=== PATIENT | male | born 1960 | race Caucasian/White ===

== ENCOUNTER 2020-03-02 19:32 | Emergency (ER) | payer BC, OTHER ==
--- NOTE | 2020-03-02 19:33 | ERPHSYRPT ---
- History of Present Illness Time Seen by Provider: 03/02/20 19:33 Source: patient Exam Limitations: no limitations Physician History: This is a 59-year-old white male who has no known medical diagnoses and is not taking any medications and presents with a syncopal episode that was witnessed at a restaurant. Patient was eating with his when he had a syncopal epis ode. A flight nurse was near the patient. The patient had dropped his head onto the table and was pale and diaphoretic. He was placed on the ground in a supine position and then his symptoms resolved. Patient states that he has been under a lot of stress lately having lost his job and is semiretired. This all occurred this week. Patient did drink a couple beers earlier today. He denies illicit drug use. Patient denies any symptoms of flu, he denies chest pain, he denies shortness of breath. He has had no nausea vomiting or diarrhea. He has no back pain he has no abdominal pain. This is never happened to him before. Patient refused emergency services transport and came in on his own with his . In the emergency department he has no complaints whatsoever. Patient woke up today and has been feeling fine all day. He did state that for the last couple of days he has not slept well. Timing/Duration: today Activities at Onset: other (Eating dinner) Severity of Pain-Max: none Severity of Pain-Current: none Nitro Today/Relief: no nitro taken today Aspirin Treatment Today: no aspirin today Associated Symptoms: syncope, No nausea, No vomiting, No abdominal pain, No shortness of breath, No diaphoresis, No chest pain, No fever, No headaches, No weakness Prior Chest Pain/Cardiac Workup: no prior chest pain, no prior cardiac workup Allergies/Adverse Reactions: No Known Drug Allergies Allergy (Verified 03/02/20 19:53) Home Medications: No Reportable Medications [No Reported Medications] 03/02/20 [History] Hx Tetanus, Diphtheria Vaccination/Date Given: No Hx Influenza Vaccination/Date Given: No (Decline) Hx Pneumococcal Vaccination/Date Given: No (Decline) Travel Risk - International Travel Have you traveled outside of the country in past 3 weeks: No - Coronavirus Screening Are you exhibiting any of the following symptoms?: No Close contact with a COVID-19 positive Pt in past 14-21 Days: No - Review of Systems Constitutional: No Symptoms Eyes: No Symptoms Ears, Nose, & Throat: No Symptoms Respiratory: No Symptoms Cardiac: Syncope Abdominal/Gastrointestinal: No Symptoms Genitourinary Symptoms: No Symptoms Musculoskeletal: No Symptoms Skin: No Symptoms Neurological: No Symptoms Psychological: No Symptoms Endocrine: No Symptoms Hematologic/Lymphatic: No Symptoms Immunological/Allergic: No Symptoms All Other Systems: Reviewed and Negative - Past Medical History Pertinent Past Medical History: Yes Neurological History: No Pertinent History ENT History: No Pertinent History Cardiac History: No Pertinent History Respiratory History: No Pertinent History Endocrine Medical History: No Pertinent History Musculoskeletal History: Other GI Medical History: No Pertinent History History: No Pertinent History Psycho-Social History: No Pertinent History Male Reproductive Disorders: No Pertinent History Other Medical History: Intermittent back pain - Past Surgical History Past Surgical History: No Neuro Surgical History: No Pertinent History Cardiac: No Pertinent History Respiratory: No Pertinent History Gastrointestinal: No Pertinent History Genitourinary: No Pertinent History Musculoskeletal: No Pertinent History Male Surgical History: No Pertinent History Other Surgical History: Boil lanced buttocks 2010 - Social History Smoking Status: Never smoker Exposure to second hand smoke: Yes Drug Use: none Patient Lives Alone: No - Nursing Vital Signs Nursing Vital Signs: Initial Vital Signs Temperature 98.1 F 03/02/20 19:37 Pulse Rate 77 03/02/20 19:37 Respiratory Rate 18 03/02/20 19:37 Blood Pressure 110/71 03/02/20 19:37 O2 Sat by Pulse Oximetry 97 03/02/20 19:37 Pain Scale Pain Intensity 0 - Physical Exam General Appearance: no apparent distress, alert Eye Exam: PERRL/EOMI, eyes nml inspection Ears, Nose, Throat Exam: normal ENT inspection, moist mucous membranes Neck Exam: normal inspection, non-tender, supple, full range of motion Respiratory Exam: normal breath sounds, lungs clear, airway intact, No chest tenderness, No respiratory distress Cardiovascular Exam: regular rate/rhythm, normal heart sounds, normal peripheral pulses Gastrointestinal/Abdomen Exam: soft, normal bowel sounds, No tenderness Rectal Exam: not done Back Exam: normal inspection, normal range of motion, No CVA tenderness Extremity Exam: normal inspection, normal range of motion, pelvis stable Neurologic Exam: alert, oriented x 3, cooperative, computational scientist II-XII nml as tested, normal mood/affect, nml cerebellar function, nml station & gait, sensation nml Skin Exam: normal color, warm, dry Lymphatic Exam: No adenopathy SpO2 Interpretation: normal O2 Delivery: Room Air - Course Nursing assessment & vital signs reviewed: Yes EKG Interpreted by Me: RATE (77), Sinus Rhythm, NORMAL AXIS, NORMAL INTERVALS, NORMAL QRS, NORMAL ST-T, Other (No acute ischemic changes. No comparison EKGs available.) Ordered Tests: Active Orders 24 hr Category Date Time Status Senior Java Web Developer STAT Care 03/02/20 19:56 Active Clean Catch Urine Specimen STAT Care 03/02/20 19:55 Active EKG-ER Only STAT Care 03/02/20 19:55 Active IV Insertion STAT Care 03/02/20 19:55 Active Pulse Oximetry (ED) STAT Care 03/02/20 19:55 Active HEAD WITHOUT CONTRAST [CT] Stat Exams 03/02/20 19:56 Taken CBC W DIFF Stat Lab 03/02/20 20:10 Completed CMP Stat Lab 03/02/20 20:10 Completed ETHYL ALCOHOL Stat Lab 03/02/20 20:10 Completed PROTIME WITH INR Stat Lab 03/02/20 20:10 Completed TROPONIN Q3H Lab 03/02/20 20:10 Completed TROPONIN Q3H Lab 03/02/20 23:00 Ordered TROPONIN Q3H Lab 03/03/20 02:00 Ordered TROPONIN Q3H Lab 03/03/20 05:00 Ordered TROPONIN Q3H Lab 03/03/20 08:00 Ordered UA W/RFX UR CULTURE Stat Lab 03/02/20 20:50 Ordered Urine Triage Profile Stat Lab 03/02/20 20:50 Ordered Medication Summary Generic Name Dose Route Start Last Admin Trade Name Freq PRN Reason Stop Dose Admin Sodium Chloride 1,000 mls @ 999 mls/hr 03/02/20 19:55 03/02/20 20:02 Sodium Chloride 0.9% 1000 Ml IV 03/02/20 20:55 999 mls/hr .Q1H1M STA Administration Discontinued Medications Generic Name Dose Route Start Last Admin Trade Name Freq PRN Reason Stop Dose Admin Sodium Chloride Confirm 03/02/20 20:00 Sodium Chloride 0.9% 1000 Ml Administered 03/02/20 20:01 Dose 1,000 mls @ ud .ROUTE .STK-MED ONE Lab/Rad Data: Laboratory Result Diagrams 03/02/20 20:10 03/02/20 20:10 Laboratory Results 03/02/20 03/02/20 03/02/20 Range/Units 20:10 20:10 20:10 WBC (4.0-10.5) K/mm3 RBC (4.1-5.6) M/mm3 Hgb (12.5-18.0) gm/dl Hct (42-50) % MCV (78-100) fl MCH (26-32) pg MCHC (32-36) g/dl RDW (11.5-14.0) % Plt Count (150-450) K/mm3 MPV (7.5-11.0) fl Gran % (36.0-66.0) % Eos # (Auto) (0-0.5) Absolute Lymphs (auto) (1.0-4.6) Absolute Monos (auto) (0.0-1.3) Lymphocytes % (24.0-44.0) % Monocytes % (0.0-12.0) % Eosinophils % (0.00-5.0) % Basophils % (0.0-0.4) % Absolute Granulocytes (1.4-6.9) Basophils # (0-0.4) PT 12.7 (8.83-12.87) SECONDS INR 1.12 (0.8-3.0) Sodium 137 (137-145) mmol/L Potassium 3.7 (3.5-5.1) mmol/L Chloride 102 (98-107) mmol/L Carbon Dioxide 24 (22-30) mmol/L Anion Gap 14.7 (5-15) MEQ/L BUN 17 (9-20) mg/dL Creatinine 1.08 (0.66-1.25) mg/dL Estimated GFR > 60.0 ML/MIN Glucose 118 H (74-106) mg/dL Calcium 9.8 (8.4-10.2) mg/dL Total Bilirubin 0.70 (0.2-1.3) mg/dL AST 38 (17-59) U/L ALT 69 H (0-50) U/L Alkaline Phosphatase 70 (38-126) U/L Troponin I < 0.012 (0.000-0.034) ng/mL Serum Total Protein 7.5 (6.3-8.2) g/dL Albumin 4.6 (3.5-5.0) g/dL Ethyl Alcohol 16 H (0-10) mg/dL 03/02/20 Range/Units 20:10 WBC 7.9 (4.0-10.5) K/mm3 RBC 5.02 (4.1-5.6) M/mm3 Hgb 16.0 (12.5-18.0) gm/dl Hct 47.8 (42-50) % MCV 95.2 (78-100) fl MCH 31.9 (26-32) pg MCHC 33.5 (32-36) g/dl RDW 13.2 (11.5-14.0) % Plt Count 300 (150-450) K/mm3 MPV 9.6 (7.5-11.0) fl Gran % 61.8 (36.0-66.0) % Eos # (Auto) 0.10 (0-0.5) Absolute Lymphs (auto) 2.19 (1.0-4.6) Absolute Monos (auto) 0.70 (0.0-1.3) Lymphocytes % 27.7 (24.0-44.0) % Monocytes % 8.9 (0.0-12.0) % Eosinophils % 1.3 (0.00-5.0) % Basophils % 0.3 (0.0-0.4) % Absolute Granulocytes 4.89 (1.4-6.9) Basophils # 0.02 (0-0.4) PT (8.83-12.87) SECONDS INR (0.8-3.0) Sodium (137-145) mmol/L Potassium (3.5-5.1) mmol/L Chloride (98-107) mmol/L Carbon Dioxide (22-30) mmol/L Anion Gap (5-15) MEQ/L BUN (9-20) mg/dL Creatinine (0.66-1.25) mg/dL Estimated GFR ML/MIN Glucose (74-106) mg/dL Calcium (8.4-10.2) mg/dL Total Bilirubin (0.2-1.3) mg/dL AST (17-59) U/L ALT (0-50) U/L Alkaline Phosphatase (38-126) U/L Troponin I (0.000-0.034) ng/mL Serum Total Protein (6.3-8.2) g/dL Albumin (3.5-5.0) g/dL Ethyl Alcohol (0-10) mg/dL - Progress Progress: improved Air Movement: good Progress Note: 03/02/20 20:51 CAT scan of the head without contrast shows a few tiny cavernous sinus air bubbles without fracture. Rule out posttraumatic versus infectious versus iatrogenic. If none of the above, air bubbles are typically of no clinical significance. Remaining CT head negative. Medical decision making: This patient denies head injury. He had a syncopal episode at a restaurant. Patient symptoms have completely resolved prior to arrival here. The patient's spouse made him come to the emergency department. Patient denies any kind of symptoms. Patient is feeling well. His lab work is of no clinical significance. Patient will be discharged to home with instruction to follow-up with his primary care physician for further management. Blood Culture(s) Obtained: No Antibiotics given: No Counseled pt/family regarding: lab results, diagnosis, need for follow-up, rad results - Departure Departure Disposition: Home Clinical Impression: Syncopal episodes Condition: Stable Critical Care Time: No Referrals: HAZEL JUELS [ACTIVE STAFF] - Additional Instructions: Drink plenty of fluids. Call your primary care doctor today to make arrangements for follow-up appointment.
[2020-03-02] MEDS ORDERED: Sodium Chloride 0.9% 1000 ML 1,000 ML IV STA (19:55)
[2020-03-02] MEDS ORDERED: Sodium Chloride 0.9% 1000 ML 1,000 ML ONE (20:00)
[2020-03-02 20:21] LABS: Absolute Neutrophil Ct (ANC) 4.89 (1.4-6.9); BASOPHIL % 0.3 % (0.0-0.4); Basophil (Absolute #) 0.02 (0-0.4); Eosinophil % 1.3 % (0.00-5.0); Hematocrit 47.8 % (42-50); Lymphocyte (Absolute #) 2.19 (1.0-4.6); Lymphocytes % 27.7 % (24.0-44.0); Mean Cell Volume 95.2 fl (78-100); Mean Corpuscular Hemoglobin 31.9 pg (26-32); Mean Corpuscular Hgb Concent. 33.5 g/dl (32-36); Mean Platelet Volume 9.6 fl (7.5-11.0); Monocytes % 8.9 % (0.0-12.0); Neutrophil % 61.8 % (36.0-66.0); Platelet Count 300 K/mm3 (150-450); Red Blood Count 5.02 M/mm3 (4.1-5.6); Red Cell Distribution Width 13.2 % (11.5-14.0); White Blood Count 7.9 K/mm3 (4.0-10.5)
[2020-03-02 20:27] LABS: INR 1.12 (0.8-3.0); PROTIME 12.7 SECONDS (8.83-12.87)
[2020-03-02 20:33] LABS: ALBUMIN 4.6 g/dL (3.5-5.0); ALKALINE PHOSPHATASE 70 U/L (38-126); ANION GAP 14.7 MEQ/L (5-15); BLOOD UREA NITROGEN 17 mg/dL (9-20); CHLORIDE 102 mmol/L (98-107); Calcium 9.8 mg/dL (8.4-10.2); Carbon Dioxide 24 mmol/L (22-30); Creatinine 1 1.08 mg/dL (0.66-1.25); EST GLOMERULAR FILTRATION RATE > 60.0 ML/MIN; ETHYL ALCOHOL 16 mg/dL (0-10); Glucose 118 mg/dL (74-106); Potassium 3.7 mmol/L (3.5-5.1); SGOT/AST 38 U/L (17-59); SGPT/ALT 69 U/L (0-50); SODIUM 137 mmol/L (137-145); Total Protein 7.5 g/dL (6.3-8.2)
[2020-03-02 21:06] LABS: Appearance SLIGHTLY CLOUDY (CLEAR); Bilirubin NEGATIVE (NEGATIVE); Blood NEGATIVE Ery/ul (0-5); Glucose NEGATIVE (NEGATIVE); Ketones TRACE (NEGATIVE); Leukocyte Esterase NEGATIVE (NEGATIVE); Mucus MANY /HPF (NEGATIVE); Nitrite NEGATIVE (NEGATIVE); Protein,Urine Dip 30 (Negative); Specific Gravity 1.029 (1.005-1.025); Urobilinogen 2 mg/dL (0-1)
[2020-03-02 21:14] LABS: Amphetamine,Urine NEGATIVE (NEGATIVE); Barbiturate,Urine NEGATIVE (NEGATIVE); Benzodiazepine,Urine NEGATIVE (NEGATIVE); Cocaine,Urine NEGATIVE (NEGATIVE); Methadone,Urine NEGATIVE (NEGATIVE); Opiate,Urine POSITIVE (NEGATIVE); PCP,Urine NEGATIVE (NEGATIVE); THC,Urine POSITIVE (NEGATIVE)
[2020-03-02 21:22] VITALS: BP 111/76; PULSE 77; O2SAT 97
--- NOTE | 2020-03-03 08:56 | XRAY ---
Indication: Syncopal episode. No known injury. Multiple contiguous axial images obtained through the head without contrast. Comparison: None Ventriculosulcal pattern appears symmetric. No acute intracranial hemorrhage, abnormal extra-axial fluid collection, or mass effect. Fourth ventricle is midline without hydrocephalus. Toscano-white matter differentiation preserved. A few tiny air bubbles in the cavernous sinus. Bony calvarium intact. Visualized paranasal sinuses and mastoid air cells are clear. Impression: Cavernous sinus air bubbles. Rule out posttraumatic, infection, or iatrogenic etiologies. Remaining CT head without contrast exam is negative.
== END 2020-03-02 21:38 | disposition home or self-care (01) ==
LOC: ED 19:32
DX: R55 Syncope and collapse (principal)
CPT/HCPCS: 36000; 36415; 70450; 80053; 80307; 81001; 84484; 85025; 85610; 93005; 93041; 94760; 96360; 99284; G0480

== ENCOUNTER 2025-01-19 19:23 | Emergency (ER) | payer OTHER ==
[2025-01-19 19:35] VITALS: RESP 22; TEMP 96.5
[2025-01-19] MEDS ORDERED: TORAdol 30 mg Injection ONE (19:38)
[2025-01-19] MEDS ORDERED: Zofran 4 MG/2 ML VIAL ONE (19:38)
--- NOTE | 2025-01-19 19:38 | ERPHSYRPT ---
- History of Present Illness Time Seen by Provider: 01/19/25 19:30 Source: patient Patient Subjective Stated Complaint: pt states that he thinks he is passing a kidney stone Triage Nursing Assessment: pt ambulated into the er; pt is axo x4; c/o abd pain; pt states 10/10 pain to lower rt abd; abd round, soft, tender; active bowel sounds in all quads; c/o N/V, denies diarrhea; skin PDW; no respiratory distress present; hypertensive Physician History: 4-year-old male reports history of prior kidney stones to the ED with a similar pain starting in the right side of his abdomen with sharp severe pain and nausea vomiting. No flank pain. No urinary symptoms. Reports several episodes of vomiting tonight. No fever or chills. Denies any abdominal tenderness. Allergies/Adverse Reactions: No Known Drug Allergies Allergy (Verified 01/19/25 19:29) Hx Tetanus, Diphtheria Vaccination/Date Given: Yes Hx Influenza Vaccination/Date Given: No (Decline) Hx Pneumococcal Vaccination/Date Given: No (Decline) Travel Risk - International Travel Have you traveled outside of the country in past 3 weeks: No - Emerging Infectious Disease Are you exhibiting symptoms associated with any current EIDs: Yes Symptoms: Abdominal Pain - Review of Systems Constitutional: No Fever, No Chills Eyes: No Symptoms Ears, Nose, & Throat: No Symptoms Respiratory: No Cough, No Dyspnea Cardiac: No Chest Pain, No Edema, No Syncope Abdominal/Gastrointestinal: Abdominal Pain, Nausea, Vomiting, No Diarrhea Genitourinary Symptoms: No Dysuria Musculoskeletal: No Back Pain, No Neck Pain Skin: No Rash Neurological: No Dizziness, No Focal Weakness, No Sensory Changes Psychological: No Symptoms Endocrine: No Symptoms All Other Systems: Reviewed and Negative - Past Medical History Pertinent Past Medical History: Yes Neurological History: No Pertinent History ENT History: No Pertinent History Cardiac History: No Pertinent History Respiratory History: No Pertinent History Endocrine Medical History: No Pertinent History Musculoskeletal History: Other GI Medical History: No Pertinent History History: No Pertinent History Psycho-Social History: No Pertinent History Male Reproductive Disorders: No Pertinent History Other Medical History: Intermittent back pain - Past Surgical History Past Surgical History: No Neuro Surgical History: No Pertinent History Cardiac: No Pertinent History Respiratory: No Pertinent History Gastrointestinal: No Pertinent History Genitourinary: No Pertinent History Musculoskeletal: No Pertinent History Male Surgical History: No Pertinent History Other Surgical History: Boil lanced buttocks 2010 - Social History Smoking Status: Never smoker Exposure to second hand smoke: Yes Drug Use: none - Social Determinants of Health Will the patient participate in the screening: Declined to provide - Nursing Vital Signs Nursing Vital Signs: Initial Vital Signs Temperature 96.5 F 01/19/25 19:29 Pulse Rate 61 01/19/25 19:29 Respiratory Rate 22 01/19/25 19:29 Blood Pressure 169/103 01/19/25 19:29 O2 Sat by Pulse Oximetry 100 01/19/25 19:29 Pain Scale Pain Intensity 2 - Physical Exam General Appearance: no apparent distress, alert Eye Exam: PERRL/EOMI, eyes nml inspection Ears, Nose, Throat Exam: normal ENT inspection, TMs normal, pharynx normal, moist mucous membranes Neck Exam: normal inspection, non-tender, supple, full range of motion Respiratory Exam: normal breath sounds, lungs clear, No respiratory distress Cardiovascular Exam: regular rate/rhythm, normal heart sounds, normal peripheral pulses Gastrointestinal/Abdomen Exam: soft, normal bowel sounds, No tenderness, No distention, No mass Back Exam: normal inspection, normal range of motion, No CVA tenderness, No vertebral tenderness Extremity Exam: normal inspection, normal range of motion, pelvis stable Neurologic Exam: alert, oriented x 3, cooperative, normal mood/affect, nml cerebellar function, nml station & gait, sensation nml, No motor deficits Skin Exam: normal color, warm, dry, No rash Lymphatic Exam: No adenopathy SpO2: 100 Ordered Tests: Active Orders 24 hr Category Date Time Status ABDOMEN AND PELVIS W/0 CONTRAS [CT] Stat Exams 01/19/25 19:35 Taken BMP Stat Lab 01/19/25 19:35 Completed CBC W DIFF Stat Lab 01/19/25 19:35 Completed CULTURE,URINE Stat Lab 01/19/25 21:13 Received UA W/RFX UR CULTURE Stat Lab 01/19/25 21:13 Completed Medication Summary Discontinued Medications Generic Name Dose Route Start Last Admin Trade Name Freq PRN Reason Stop Dose Admin Ketorolac Tromethamine 15 mg 01/19/25 19:34 01/19/25 19:41 Ketorolac Tromethamine 30 Mg/Ml Inj IV 01/19/25 19:35 15 mg STAT ONE Administration Ketorolac Tromethamine Confirm 01/19/25 19:38 Ketorolac Tromethamine 30 Mg/Ml Inj Administered 01/19/25 19:39 Dose 30 mg .ROUTE .STK-MED ONE Ondansetron HCl 4 mg 01/19/25 19:34 01/19/25 19:39 Ondansetron Hcl 4 Mg/2 Ml Vial IV 01/19/25 19:35 4 mg STAT ONE Administration Ondansetron HCl Confirm 01/19/25 19:38 Ondansetron Hcl 4 Mg/2 Ml Vial Administered 01/19/25 19:39 Dose 4 mg .ROUTE .STK-MED ONE Lab/Rad Data: Laboratory Result Diagrams 01/19/25 19:35 01/19/25 19:35 Laboratory Results 01/19/25 01/19/25 01/19/25 Range/Units 21:13 19:35 19:35 WBC 13.9 H (4.23-9.07) x10^3/uL RBC 4.75 (4.63-6.08) x10^6/uL Hgb 15.5 (13.7-17.5) g/dL Hct 46.0 (40.1-51.0) % MCV 96.8 H (79.0-92.2) fL MCH 32.6 H (25.7-32.2) pg MCHC 33.7 (32.3-36.5) g/dL RDW 12.5 (11.6-14.4) % Plt Count 272 (163-337) x10^3/uL MPV 8.9 L (9.4-12.4) fL Gran % 85.2 H (34.0-67.9) % Immature Gran % (Auto) 0.5 H (0.001-0.429) % Nucleat RBC Rel Count 0.0 (0.00-0.2) % Eos # (Auto) 0.11 (0.04-0.54) x10^3/uL Immature Gran # (Auto) 0.07 H (0.001-0.031) x10^3u/L Absolute Lymphs (auto) 1.21 L (1.32-3.57) x10^3/uL Absolute Monos (auto) 0.62 (0.30-0.82) x10^3/uL Absolute Nucleated RBC 0.00 (0.00-0.012) x10^3u/L Lymphocytes % 8.7 L (21.8-53.1) % Monocytes % 4.5 L (5.3-12.2) % Eosinophils % 0.8 (0.8-7.0) % Basophils % 0.3 (0.2-1.2) % Absolute Granulocytes 11.81 H (1.78-5.38) x10^3/uL Basophils # 0.04 (0.01-0.08) x10^3/uL Sodium 137 (135-145) mmol/L Potassium 4.0 (3.5-5.1) mmol/L Chloride 102 (98-107) mmol/L Carbon Dioxide 25 (22-30) mmol/L Anion Gap 13.8 (5-15) MEQ/L BUN 16 (9-20) mg/dL Creatinine 1.07 (0.66-1.25) mg/dL Estimated GFR 77.5 ML/MIN Glucose 132 H (74-106) mg/dL Calcium 10.0 (8.4-10.2) mg/dL Urine Color Dark Yellow (Yellow) Urine Appearance Cloudy A (Clear) Urine pH 5.0 (4.6-8.0) Ur Specific Aneta >=1.030 A (1.005-1.030) Urine Protein 30 (Negative) Urine Glucose (UA) Negative (Negative) mg/dL Urine Ketones 15 A (Negative) Urine Blood Large A (Negative) Urine Nitrite Negative (Negative) Urine Bilirubin Negative (Negative) Urine Urobilinogen 1.0 A (0.2) mg/dL Ur Leukocyte Esterase Trace A (Negative) U Hyaline Cast (Auto) NONE SEEN (0-2) /LPF Urine Microscopic RBC 51-100 A (0-5) /HPF Urine Microscopic WBC 0-2 (0-5) /HPF Ur Epithelial Cells None Seen (None Seen) /HPF Urine Bacteria None Seen (None Seen) /HPF Urine Culture Reflexed YES (NO) - Progress Progress: improved Progress Note: 01/19/25 19:37 64-year-old male with history of kidney stones presents with 24 hours of sharp constant pain in the right groin and associated nausea and vomiting. No flank pain. No abdominal tenderness. Lab workup CBC chemistries urinalysis CT abdomen with 15 mg IV toradol and 4 mg IV Zofran ordered. 01/19/25 21:20 Exam pain is resolved. Mild white count. CT scan read as 5 to 6 mm millimeter right UVJ stone with mild hydronephrosis hydroureter grossly stable liver hemangioma moderate size hiatal hernia findings cussed with patient - Departure Clinical Impression: Ureteral stone with hydronephrosis, Hiatal hernia Condition: Good Critical Care Time: No Referrals: SAM WOODARD MD [Primary Care Provider, [facility]] - Follow up/PCP as directed Instructions: Kidney stones in adults Additional Instructions: You have a right-sided kidney stone that needs follow-up with urology if your symptoms do not resolve. To be placed on medication to pass the stone. Take ibuprofen for discomfort and take the pain pills as needed. Turn for fever or worsening pain vomiting or concerns Prescriptions: Ondansetron ODT 4 MG [Zofran Odt 4 mg] 4 mg PO Q6H PRN PRN #10 tablet PRN Reason: Nausea Tamsulosin HCl [Flomax] 0.4 mg PO DAILY #14 cap Hydrocodone/Acetaminophen [Hydrocodon-Acetaminophen 5-325] 1 each PO Q6H PRN 3 Days #12 tablet MDD 4 tablets PRN Reason: Pain
[2025-01-19] MEDS: Zofran 4 MG/2 ML VIAL IV ONE (19:39)
[2025-01-19] MEDS: TORAdol 30 mg Injection IV ONE (19:41)
[2025-01-19 19:43] LABS: BASOPHIL % 0.3 % (0.2-1.2); Basophil (Absolute #) 0.04 x10^3/uL (0.01-0.08); Eosinophil (Absolute #) 0.11 x10^3/uL (0.04-0.54); Hematocrit 46.0 % (40.1-51.0); Hemoglobin 15.5 g/dL (13.7-17.5); IMMATURE GRAN # 0.07 x10^3u/L (0.001-0.031); IMMATURE GRAN % 0.5 % (0.001-0.429); Lymphocyte (Absolute #) 1.21 x10^3/uL (1.32-3.57); Mean Corpuscular Hemoglobin 32.6 pg (25.7-32.2); Mean Corpuscular Hgb Concent. 33.7 g/dL (32.3-36.5); Monocyte (Absolute #) 0.62 x10^3/uL (0.30-0.82); NUCLEATED RBC # 0.00 x10^3u/L (0.00-0.012); NUCLEATED RBC % 0.0 % (0.00-0.2); Platelet Count 272 x10^3/uL (163-337); Red Blood Count 4.75 x10^6/uL (4.63-6.08); White Blood Count 13.9 x10^3/uL (4.23-9.07)
[2025-01-19 19:57] LABS: Calcium 10.0 mg/dL (8.4-10.2); Carbon Dioxide 25.0 mmol/L (22-30); Creatinine 1 1.07 mg/dL (0.66-1.25); EST GLOMERULAR FILTRATION RATE 77.5 ML/MIN; Glucose 132.0 mg/dL (74-106); Potassium 4.0 mmol/L (3.5-5.1)
[2025-01-19 21:21] LABS: Glucose, Urine Negative (Negative); Protein,Urine Dip 30 (Negative); RBC 51-100 /HPF (0-5); WBC 0-2 /HPF (0-5)
[2025-01-19 21:27] VITALS: O2SAT 100
[2025-01-19 21:35] VITALS: BP 119/86; PULSE 68
[2025-01-19] MEDS ORDERED: NORCO 5/325 MG ONE (21:36)
[2025-01-19] MEDS ORDERED: ZOFRAN ODT 4 MG ONE (21:36)
[2025-01-19] MEDS: NORCO 5/325 MG PO ONE (21:37)
[2025-01-19] MEDS: ZOFRAN ODT 4 MG PO ONE (21:37)
--- NOTE | 2025-01-20 08:51 | XRAY ---
Indication: Right lower quadrant pain. Vomiting. Multiple contiguous axial images obtained through the abdomen and pelvis without contrast using renal stone protocol. Comparison: May 18, 2012 Lung bases again demonstrates small posterior right lower lobe calcified granuloma and minimal bibasilar fibrosis/scarring. No infiltrate or effusion. Heart not enlarged. New moderate-sized hiatal hernia with partial intrathoracic stomach. New 5-6 mm distal right UVJ calculus. Proximal right ureter is prominent up to 8 mm diameter along with mild hydronephrosis favoring partial obstructive uropathy. Additional 3 right renal punctate calculi. Left renal upper pole demonstrates new 9 mm exophytic cyst. No free fluid/air. Noncontrasted stomach and bowel loops appear nonobstructed with normal appendix. New scattered colonic diverticulosis greatest in sigmoid. Right lobe liver demonstrates grossly stable appearing previous CT proven giant hemangioma. Again incidental tiny hepatic/splenic calcified granulomas. Remaining liver, gallbladder, pancreas, spleen, adrenal glands, kidneys, ureters, and bladder are unremarkable for noncontrast exam. New minimal scattered aortoiliac calcifications without AAA. Osseous structures intact. Impression: 1. New 5-6 mm distal right UVJ calculus producing partial obstruction. Additional right renal punctate calculi. 2. Chronic findings including pulmonary fibrosis/scarring, hiatal hernia with partial intrathoracic stomach, left renal cyst, colonic diverticulosis, giant hepatic hemangioma, arteriosclerotic disease, and old granulomatous disease.
== END 2025-01-19 21:48 | disposition home or self-care (01) ==
LOC: ED 19:23
DX: N13.2 Hydronephrosis with renal and ureteral calculous obstruction (principal); K44.9 Diaphragmatic hernia without obstruction or gangrene; R11.2 Nausea with vomiting, unspecified; R10.9 Unspecified abdominal pain; Z79.891 Long term (current) use of opiate analgesic; Z79.899 Other long term (current) drug therapy